=== PATIENT | female | born 1975 | race Caucasian/White ===

== ENCOUNTER 2019-01-19 11:48 | Emergency (ER) | payer OTHER ==
[~2019-01-19] VITALS: Ht 160 cm; Wt 44.5 kg
[~2019-01-19 11:48] MED LIST: AMOXICILLIN500 MG PO; BACTRIM DS 8001 TA1 PO; CLARITIN10 MG PO; CLINDAMYCIN HC300 MG PO; CYCLOBENZAPRINE10 MG PO; DEPO-PROVER150 MG/ML IM; FLEXERIL10 MG PO; HYDROCODONE BIT1 T11 PO; IBUPROFEN600 MG PO; MACROBID100 M1 PO; MOTRIN600 MG PO; NAPROSYN500 MG PO; TRAMADOL HCL50 MG PO; TRIMOX500 MG PO; VICODIN 5/500 505 MG PO; ZITHROMAX Z PA250 MG PO; ZOFRAN4 MG PO
[2019-01-19 11:50] VITALS: BP 120/72
[2019-01-19] MEDS ORDERED: Motrin,Rufen800 MG PO (13:50)
== END 2019-01-19 13:58 | disposition home or self-care (01) ==
LOC: ED 11:48
DX: M25.562 Pain in left knee (principal); Z88.6 Allergy status to analgesic agent; Z88.8 Allergy status to other drugs, medicaments and biological substances; X58.XXXA Exposure to other specified factors, initial encounter; Y93.89 Activity, other specified; Y92.89 Other specified places as the place of occurrence of the external cause; Y99.0 Civilian activity done for income or pay

== ENCOUNTER 2019-04-02 08:51 | Emergency (ER) | payer OTHER ==
[~2019-04-02] VITALS: Ht 160 cm; Wt 39.9 kg
[~2019-04-02 08:51] MED LIST changes: +Motrin,Rufen800 MG PO
[2019-04-02 08:52] VITALS: BP 116/72
== END 2019-04-02 09:46 | disposition home or self-care (01) ==
LOC: ED 08:51
DX: J02.8 Acute pharyngitis due to other specified organisms (principal); Z88.5 Allergy status to narcotic agent; Z88.8 Allergy status to other drugs, medicaments and biological substances; Z79.899 Other long term (current) drug therapy

== ENCOUNTER 2021-01-06 14:48 | Emergency (ER) | payer SELFPAY | END 2021-01-06 15:30 | disposition left against medical advice (07) | LOC: ED 14:48 | DX: R09.81 Nasal congestion (principal); Z53.21 Procedure and treatment not carried out due to patient leaving prior to being seen by health care provider ==

== ENCOUNTER → 2021-01-14 | Outpatient (CLI) | payer OTHER | END | disposition home or self-care (01) | LOC: COVID19 16:53 | PROVIDERS: ATTEND Student in an Organized Health Care Education/Training Program | DX: Z11.52 Encounter for screening for COVID-19 (principal) ==